=== PATIENT | female | born 1975 | race Caucasian/White ===

== ENCOUNTER 2018-02-02 19:55 | Emergency (ER) | payer SELFPAY, OTHER ==
[2018-02-02] MEDS: TETRACAINE 0.5% 4 ML OPH RIGHT EYE (22:00)
[2018-02-02] MEDS: FLUORESCEIN STRIP RIGHT EYE (22:00)
[2018-02-02] MEDS: SOD CHLORIDE 0.9% 1,000 ML IV (22:17)
== END 2018-02-02 22:55 | disposition home or self-care (01) ==
LOC: FTE 19:55
DX: T65.6X1A Toxic effect of paints and dyes, not elsewhere classified, accidental (unintentional), initial encounter (principal)
CPT/HCPCS: 99284